=== PATIENT | male | born 1975 | race African-American/Black ===

== ENCOUNTER 2024-07-30 07:27 | Day surgery (SDC) | payer OTHER ==
[2024-07-29 12:44] VITALS: BMI 27.1
[2024-07-30 10:26] VITALS: RESP 18
[2024-07-30 10:35] VITALS: BP 108/62; PULSE 66; TEMP 97.8
== END 2024-07-30 10:45 | disposition home or self-care (01) ==
LOC: JASU-ENDO 07:27
PROVIDERS: ATTEND Internal Medicine Gastroenterology
PROC: 0DBL8ZX Excision of Transverse Colon, Via Natural or Artificial Opening Endoscopic, Diagnostic (ICD-10-PCS; 2024-07-30)
PROC: 0DBK8ZX Excision of Ascending Colon, Via Natural or Artificial Opening Endoscopic, Diagnostic (ICD-10-PCS; principal; 2024-07-30 09:00)
DX: Z12.11 Encounter for screening for malignant neoplasm of colon (principal); D12.2 Benign neoplasm of ascending colon; D12.3 Benign neoplasm of transverse colon; K64.8 Other hemorrhoids; K57.30 Diverticulosis of large intestine without perforation or abscess without bleeding
CPT/HCPCS: 88305-TC